=== PATIENT | female | born 1970 | race Caucasian/White ===

== ENCOUNTER 2017-04-09 12:56 | Emergency (ER) | payer OTHER, SELFPAY ==
[2017-04-09] MEDS ORDERED: Metoclopramide 10 MG/2 ML SDV IVPUSH ONE (13:20)
[2017-04-09] MEDS ORDERED: Lactated Ringers 1,000 ML IV ONE ×3 (13:20→15:27)
--- NOTE | 2017-04-09 13:36 | EDM.PDOC ---
ED HPI GENERAL MEDICAL PROBLEM - General Chief Complaint: Diabetic Complaint Stated Complaint: HIGH BLOOD SUGAR, VOMITING Time Seen by Provider: 04/09/17 13:20 Source of Information: Reports: Patient, Family History Limitations: Reports: No Limitations - History of Present Illness INITIAL COMMENTS - FREE TEXT/NARRATIVE: 46 yo female diabetic presents with high blood sugar and vomiting. Says she was hospitalized for DKA about 5 yrs ago. Checks her BS rarely. Has long acting insulin that she takes daily and short acting insulin that she rarely uses, but did take 3 units of this today for her BS in the upper 400's. No fever. No hematemesis. No dysuria. No diarrhea. Here with her . Onset of vomiting this morning. Feels like she might be dehydrated. 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.) - Related Data Allergies Allergy/AdvReac Type Severity Reaction Status Date / Time No Known Allergies Allergy Verified 04/09/17 13:05 Home Meds: Home Meds Insulin Aspart [NovoLOG] 3 units SQ TID 04/09/17 [History] Insulin Glargine,Hum.Rec.Anlog [Lantus Solostar] 20 unit SQ QAM 04/09/17 [ History] Sertraline HCl [Sertraline HCl] 1 tab PO DAILY 04/09/17 [History] Simvastatin [Zocor] 20 mg PO BEDTIME 04/09/17 [History] Past Medical History Cardiovascular History: Reports: High Cholesterol Psychiatric History: Reports: Anxiety Endocrine/Metabolic History: Reports: Diabetes, Type I Social & Family History - Family History Family Medical History: Noncontributory - Tobacco Use Smoking Status *Q: Current Every Day Smoker Years of Tobacco use: 30 Packs/Tins Daily: 1 Second Hand Smoke Exposure: Yes - Alcohol Use Days Per Week of Alcohol Use: 7 Number of Drinks Per Day: 4 Total Drinks Per Week: 28 - Recreational Drug Use Recreational Drug Use: No ED ROS GENERAL - Review of Systems Review Of Systems: See Below Constitutional: Reports: No Symptoms, Decreased Appetite HEENT: Reports: No Symptoms Respiratory: Reports: No Symptoms Cardiovascular: Reports: Lightheadedness Endocrine: Reports: No Symptoms GI/Abdominal: Reports: Nausea, Vomiting : Reports: No Symptoms Musculoskeletal: Reports: No Symptoms Skin: Reports: No Symptoms Neurological: Reports: No Symptoms Psychiatric: Reports: No Symptoms ED EXAM GENERAL NO PERIP PULSE - Physical Exam Exam: See Below Exam Limited By: No Limitations General Appearance: Alert, WD/WN, No Apparent Distress Eye Exam: Bilateral Eye: Conjunctival Injection, Normal Inspection Ears: Normal External Exam, Normal Canal, Hearing Grossly Normal Nose: Normal Inspection, Normal Mucosa, No Blood Throat/Mouth: Normal Inspection, Normal Lips, Normal Teeth, Normal Gums, Normal Oropharynx, Normal Voice, No Airway Compromise Head: Atraumatic, Normocephalic Neck: Normal Inspection, Supple, Non-Tender Respiratory/Chest: No Respiratory Distress, Lungs Clear, Normal Breath Sounds, No Accessory Muscle Use Cardiovascular: Regular Rate, Rhythm, No Edema, Tachycardia GI/Abdominal: Soft, Non-Tender, No Distention Back Exam: Normal Inspection Extremities: Normal Inspection, Normal Range of Motion, Non-Tender, No Pedal Edema Neurological: Alert, Oriented, CN II-XII Intact, Normal Cognition, Normal Gait, No Motor/Sensory Deficits Psychiatric: Normal Affect, Normal Mood Skin Exam: Warm, Dry, Intact, Normal Color, No Rash Lymphatic: No Adenopathy Course - Vital Signs Text/Narrative:: LR 1000 ml IV x 3, Reglan 10 mg IV, Novolog 20 units subcut., KCL 20 meq po x 2 , ate lunch. Last Recorded V/S: Last Vital Signs Temp 36.8 C 04/09/17 14:56 Pulse 106 H 04/09/17 14:56 Resp 20 04/09/17 14:56 BP 113/63 04/09/17 14:56 Pulse Ox 99 04/09/17 14:56 - Orders/Labs/Meds Labs: Laboratory Tests 04/09/17 04/09/17 04/09/17 Range/Units 13:30 13:30 13:30 ABG pH (7.35-7.45) ABG pCO2 (35-45) mmHg ABG pO2 (83-108) mmHg ABG HCO3 (22-26) mmol/L ABG O2 Saturation (96-97) % ABG Base Excess (-2-2) Ashish Test O2 Delivery Device Sodium 134 L (135-145) mmol/L Potassium 4.7 (3.5-5.3) mmol/L Chloride 98 L (100-110) mmol/L Carbon Dioxide 10 L* (23-29) mmol/L BUN 22 H (5-20) mg/dL Creatinine 1.1 (0.6-1.3) mg/dL Est Cr Clr Drug Dosing 44.93 mL/min Estimated GFR (MDRD) 53 L (>60) BUN/Creatinine Ratio 20.0 (9-20) Glucose 438 H* (80-116) mg/dL Calcium 9.3 (8.6-10.2) mg/dL Magnesium 2.0 (1.8-2.5) mg/dL Urine Color Yellow (YELLOW) Urine Appearance Slightly cloudy (CLEAR) Urine pH 5.0 (5.0-6.5) Ur Specific [place] 1.025 (1.010-1.025) Urine Protein Negative (NEGATIVE) mg/dL Urine Glucose (UA) >1000 H (NEGATIVE) mg/dL Urine Ketones 150 H (NEGATIVE) mg/dL Urine Occult Blood Large H (NEGATIVE) Urine Nitrite Negative (NEGATIVE) Urine Bilirubin Negative (NEGATIVE) Urine Urobilinogen Normal (NEGATIVE) mg/dL Ur Leukocyte Esterase Negative (NEGATIVE) Urine RBC >100 H (0) Urine WBC 0-5 (0) Ur Squamous Epith Cells Few H (NS,R,O) Urine Bacteria Rare H (NS) 04/09/17 04/09/17 Range/Units 13:40 16:15 ABG pH 7.15 L* (7.35-7.45) ABG pCO2 24 L (35-45) mmHg ABG pO2 121 H (83-108) mmHg ABG HCO3 8 L (22-26) mmol/L ABG O2 Saturation 98 H (96-97) % ABG Base Excess -20.4 L (-2-2) Ashish Test Passed O2 Delivery Device Room air Sodium 134 L (135-145) mmol/L Potassium 4.1 (3.5-5.3) mmol/L Chloride 103 D (100-110) mmol/L Carbon Dioxide 16 L (23-29) mmol/L BUN 18 (5-20) mg/dL Creatinine 0.6 (0.6-1.3) mg/dL Est Cr Clr Drug Dosing 82.36 mL/min Estimated GFR (MDRD) > 60 (>60) BUN/Creatinine Ratio 30.0 H (9-20) Glucose 127 H D (80-116) mg/dL Calcium 8.7 (8.6-10.2) mg/dL Magnesium (1.8-2.5) mg/dL Urine Color (YELLOW) Urine Appearance (CLEAR) Urine pH (5.0-6.5) Ur Specific [place] (1.010-1.025) Urine Protein (NEGATIVE) mg/dL Urine Glucose (UA) (NEGATIVE) mg/dL Urine Ketones (NEGATIVE) mg/dL Urine Occult Blood (NEGATIVE) Urine Nitrite (NEGATIVE) Urine Bilirubin (NEGATIVE) Urine Urobilinogen (NEGATIVE) mg/dL Ur Leukocyte Esterase (NEGATIVE) Urine RBC (0) Urine WBC (0) Ur Squamous Epith Cells (NS,R,O) Urine Bacteria (NS) Meds: Medications Discontinued Medications Generic Name Dose Route Start Last Admin Trade Name Freq PRN Reason Stop Dose Admin Lactated Ringer's 1,000 mls @ 1,000 mls/hr 04/09/17 13:20 04/09/17 13:40 Ringers, Lactated IV 04/09/17 14:19 1,000 mls/hr BOLUS ONE Administration Lactated Ringer's 1,000 mls @ 1,000 mls/hr 04/09/17 14:36 04/09/17 14:43 Ringers, Lactated IV 04/09/17 15:35 1,000 mls/hr BOLUS ONE Administration Lactated Ringer's 1,000 mls @ 1,000 mls/hr 04/09/17 15:27 04/09/17 15:40 Ringers, Lactated IV 04/09/17 16:26 1,000 mls/hr BOLUS ONE Administration Insulin Aspart 10 unit 04/09/17 13:39 04/09/17 14:41 Novolog SUBCUT 04/09/17 13:40 Not Given NOW STA Insulin Aspart 20 unit 04/09/17 13:48 04/09/17 13:52 Novolog SUBCUT 04/09/17 13:49 20 units NOW STA Administration Metoclopramide HCl 10 mg 04/09/17 13:20 04/09/17 13:46 Reglan IVPUSH 04/09/17 13:21 10 mg ONETIME ONE Administration Potassium Chloride 20 meq 04/09/17 13:49 04/09/17 13:56 Klor-Con 10 PO 04/09/17 13:50 20 meq ONETIME ONE Administration Potassium Chloride 20 meq 04/09/17 15:28 04/09/17 15:36 Klor-Con 10 PO 04/09/17 15:29 20 meq ONETIME ONE Administration Departure - Departure Time of Disposition: 17:00 Disposition: Home, Self-Care 01 Condition: fair Clinical Impression: Hyperglycemia, Dehydration DKA (diabetic ketoacidoses) Qualifiers: Diabetes mellitus type: other specified (including MALDONADO) Diabetes mellitus complication detail: without coma Qualified Code(s): E13.10 - Other specified diabetes mellitus with ketoacidosis without coma Nausea & vomiting Qualifiers: Vomiting type: unspecified Vomiting Intractability: non-intractable Qualified Code(s): R11.2 - Nausea with vomiting, unspecified - Discharge Information Referrals: Dunia Martin NP [Primary Care Provider] - Forms: ED Department Discharge
[2017-04-09] MEDS ORDERED: Insulin Aspart 100 Units/ML 3 ML Pen SUBCUT STA ×2 (13:39→13:48)
[2017-04-09] MEDS ORDERED: Potassium Chloride 10 MEQ Tab.ER PO ONE ×2 (13:49→15:28)
[2017-04-09 16:54] VITALS: BP 126/60
== END 2017-04-09 16:55 | disposition home or self-care (01) ==
LOC: FB.ED 12:56
DX: E10.10 Type 1 diabetes mellitus with ketoacidosis without coma (principal); E86.0 Dehydration; F17.210 Nicotine dependence, cigarettes, uncomplicated; E78.00 Pure hypercholesterolemia, unspecified; Z79.899 Other long term (current) drug therapy
CPT/HCPCS: 36415; 36600; 80048; 81001; 82803; 82962; 83735; 96361; 96372; 96374; 99284; A9270; J2765; J7120

== ENCOUNTER 2018-05-02 21:59 | Emergency (ER) | payer OTHER ==
[2018-05-02] MEDS: Ondansetron 4 MG/2 ML SDV IVPUSH ONE (22:49)
[2018-05-02] MEDS: Sodium Chloride 0.9% 1,000 ML IV SCH (22:49)
[2018-05-02] MEDS: Insulin Regular, Human 100 Units/ML 3 ML Vial IV ONE (22:51)
[2018-05-03] MEDS: Potassium Chloride 20 MEQ Tab.ER PO ONE (00:07)
--- NOTE | 2018-05-03 00:07 | EDM.PDOC ---
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, BS 300 in ED, given 10u regular insulin IV here repeat BS 30, h/o DKA in past, hyperglycemia with no DKA tonight pt says she "just got anxious" ethanol 250 here pt works at [employer] Reviewed, worried re who will open the store in the AM had N now, resolved with Zofran and IVF (1 liter NS), no V no pain, no sob, no CP - Related Data Allergies Allergy/AdvReac Type Severity Reaction Status Date / Time No Known Allergies Allergy Verified 05/02/18 22:32 Home Meds: Home Meds Insulin Aspart [NovoLOG] 3 units SQ TID 04/09/17 [History] Insulin Glargine,Hum.Rec.Anlog [Lantus Solostar] 20 unit SQ QAM 04/09/17 [ History] Sertraline HCl 1 tab PO DAILY 04/09/17 [History] Potassium Chloride 20 meq PO BID #6 tablet.er 05/03/18 [Rx] Past Medical History Cardiovascular History: Reports: High Cholesterol Psychiatric History: Reports: Anxiety Endocrine/Metabolic History: Reports: Diabetes, Type II Social & Family History - Family History Family Medical History: Noncontributory - Tobacco Use Smoking Status *Q: Current Every Day Smoker Years of Tobacco use: 30 Packs/Tins Daily: 1 - Caffeine Use Caffeine Use: Reports: Coffee, Soda - Recreational Drug Use Recreational Drug Use: No ED ROS GENERAL - Review of Systems Review Of Systems: See Below Constitutional: Reports: No Symptoms HEENT: Reports: No Symptoms Respiratory: Reports: No Symptoms Cardiovascular: Reports: No Symptoms Endocrine: Reports: No Symptoms GI/Abdominal: Reports: No Symptoms : Reports: No Symptoms Musculoskeletal: Reports: No Symptoms Skin: Reports: No Symptoms Neurological: Reports: No Symptoms Psychiatric: Reports: Other (alcohol intox) Hematologic/Lymphatic: Reports: No Symptoms Immunologic: Reports: No Symptoms ED EXAM, GENERAL - Physical Exam Exam: See Below Exam Limited By: No Limitations General Appearance: Alert, WD/WN, No Apparent Distress Eye Exam: Bilateral Eye: Normal Inspection Ears: Normal External Exam, Hearing Grossly Normal Nose: Normal Inspection, Normal Mucosa, No Blood Throat/Mouth: Normal Inspection, Normal Lips, Normal Oropharynx, Normal Voice, No Airway Compromise Head: Atraumatic, Normocephalic Neck: Normal Inspection, Supple, Non-Tender, Full Range of Motion Respiratory/Chest: No Respiratory Distress, Lungs Clear, Normal Breath Sounds, No Accessory Muscle Use, Chest Non-Tender Cardiovascular: Normal Peripheral Pulses, Regular Rate, Rhythm, No Edema, No Gallop, No JVD, No Murmur, No Rub GI/Abdominal: Normal Bowel Sounds, Soft, Non-Tender, No Distention Back Exam: Normal Inspection, Full Range of Motion, NT Extremities: Normal Inspection, Normal Range of Motion, Non-Tender, No Pedal Edema Neurological: Alert, Oriented, CN II-XII Intact, No Motor/Sensory Deficits Psychiatric: Anxious Skin Exam: Warm, Dry, Intact, Normal Color, No Rash Lymphatic: No Adenopathy Course - Vital Signs Last Recorded V/S: Last Vital Signs Temp 36.4 C 05/02/18 22:00 Pulse 73 05/02/18 22:00 Resp 17 05/02/18 22:00 BP 123/69 05/02/18 22:00 Pulse Ox 96 05/02/18 22:00 - Orders/Labs/Meds Orders: Active Orders 24 hr Category Date Time Status UA W/MICROSCOPIC [URIN] Stat Lab 05/02/18 22:04 Stop Req Sodium Chloride 0.9% [Normal Saline] 1,000 ml Med 05/02/18 22:15 Active IV ASDIRECTED Medication Orders Sodium Chloride (Normal Saline) 1,000 mls @ 150 mls/hr IV ASDIRECTED CK Last Admin: 05/02/18 22:49 Dose: 150 mls/hr Labs: Laboratory Tests 05/02/18 05/02/18 05/02/18 Range/Units 22:15 22:15 22:15 WBC 4.1 L (4.5-12.0) X10-3/uL RBC 3.76 (3.23-5.20) x10(6)uL Hgb 11.8 (11.5-15.5) g/dL Hct 35.4 (30.0-51.3) % MCV 94.1 (80-96) fL MCH 31.3 (27.7-33.6) pg MCHC 33.3 (32.2-35.4) g/dL RDW 12.0 (11.5-15.5) % Plt Count 168 (125-369) X10(3)uL MPV 10.3 (7.4-10.4) fL Neut % (Auto) 49.0 (46-82) % Lymph % (Auto) 37.6 H (13-37) % [place] % (Auto) 7.1 (4-12) % Eos % (Auto) 5 (1.0-5.0) % Baso % (Auto) 2 (0-2) % Neut # (Auto) 2.0 (1.6-8.3) # Lymph # (Auto) 1.5 (0.6-5.0) # [place] # (Auto) 0.3 (0.0-1.3) # Eos # (Auto) 0.2 (0.0-0.8) # Baso # (Auto) 0.1 (0.0-0.2) # POC VBG pH (7.31-7.41) POC VBG pCO2 (41-51) mmHG POC VBG HCO3 (23-28) mmol/L POC VBG Total CO2 (24-29) mmol/L POC VBG Base Excess (-2-3) mmol/L Sodium 135 (135-145) mmol/L Potassium 3.1 L (3.5-5.3) mmol/L Chloride 100 (100-110) mmol/L Carbon Dioxide 25 (21-32) mmol/L BUN 7 (7-18) mg/dL Creatinine 0.5 L (0.55-1.02) mg/dL Est Cr Clr Drug Dosing TNP Estimated GFR (MDRD) > 60 (>60) BUN/Creatinine Ratio 14.0 (9-20) Glucose 300 H (80-116) mg/dL Calcium 7.8 L (8.6-10.2) mg/dL Total Bilirubin 0.3 (0.1-1.3) mg/dL AST 17 (5-25) IU/L ALT 19 (12-36) U/L Alkaline Phosphatase 83 (56-112) IU/L Total Protein 6.2 (6.0-8.0) g/dL Albumin 3.1 L (3.5-5.2) g/dL Globulin 3.1 g/dL Albumin/Globulin Ratio 1.0 Ethyl Alcohol 0.25 H* (<0.03) % 05/02/18 Range/Units 22:15 WBC (4.5-12.0) X10-3/uL RBC (3.23-5.20) x10(6)uL Hgb (11.5-15.5) g/dL Hct (30.0-51.3) % MCV (80-96) fL MCH (27.7-33.6) pg MCHC (32.2-35.4) g/dL RDW (11.5-15.5) % Plt Count (125-369) X10(3)uL MPV (7.4-10.4) fL Neut % (Auto) (46-82) % Lymph % (Auto) (13-37) % [place] % (Auto) (4-12) % Eos % (Auto) (1.0-5.0) % Baso % (Auto) (0-2) % Neut # (Auto) (1.6-8.3) # Lymph # (Auto) (0.6-5.0) # [place] # (Auto) (0.0-1.3) # Eos # (Auto) (0.0-0.8) # Baso # (Auto) (0.0-0.2) # POC VBG pH 7.32 (7.31-7.41) POC VBG pCO2 48.5 (41-51) mmHG POC VBG HCO3 25.0 (23-28) mmol/L POC VBG Total CO2 26 (24-29) mmol/L POC VBG Base Excess -1 (-2-3) mmol/L Sodium (135-145) mmol/L Potassium (3.5-5.3) mmol/L Chloride (100-110) mmol/L Carbon Dioxide (21-32) mmol/L BUN (7-18) mg/dL Creatinine (0.55-1.02) mg/dL Est Cr Clr Drug Dosing Estimated GFR (MDRD) (>60) BUN/Creatinine Ratio (9-20) Glucose (80-116) mg/dL Calcium (8.6-10.2) mg/dL Total Bilirubin (0.1-1.3) mg/dL AST (5-25) IU/L ALT (12-36) U/L Alkaline Phosphatase (56-112) IU/L Total Protein (6.0-8.0) g/dL Albumin (3.5-5.2) g/dL Globulin g/dL Albumin/Globulin Ratio Ethyl Alcohol (<0.03) % Meds: Medications Generic Name Dose Route Start Last Admin Trade Name Freq PRN Reason Stop Dose Admin Sodium Chloride 1,000 mls @ 150 mls/hr 05/02/18 22:15 05/02/18 22:49 Normal Saline IV 150 mls/hr ASDIRECTED CK Administration Discontinued Medications Generic Name Dose Route Start Last Admin Trade Name Freq PRN Reason Stop Dose Admin Insulin Human Regular 10 unit 05/02/18 22:02 05/02/18 22:51 Humulin R IV 05/02/18 22:03 10 units ONETIME ONE Administration Ondansetron HCl 4 mg 05/02/18 22:02 05/02/18 22:49 Zofran IVPUSH 05/02/18 22:03 4 mg ONETIME ONE Administration Potassium Chloride 40 meq 05/02/18 23:13 Klor-Con M20 PO 05/02/18 23:14 ONETIME ONE Departure - Departure Time of Disposition: 00:07 Disposition: Home, Self-Care 01 Condition: Good Clinical Impression: Alcohol intoxication, Hypokalemia, Hyperglycemia - Discharge Information Prescriptions: Potassium Chloride 20 meq PO BID #6 tablet.er Instructions: Alcohol Intoxication, Alcohol Use Disorder Additional Instructions: To replace potassium, take potassium 20 meq 1 tab 2 times a day for 3 days. Continue current meds and insulin. Maintain fluids. Avoid alcohol. See your doctor in 2 days. - My Orders Last 24 Hours: My Active Orders 05/02/18 22:04 UA W/MICROSCOPIC [URIN] Stat 05/02/18 22:15 Sodium Chloride 0.9% [Normal Saline] 1,000 ml IV ASDIRECTED - Assessment/Plan Last 24 Hours: My Active Orders 05/02/18 22:04 UA W/MICROSCOPIC [URIN] Stat 05/02/18 22:15 Sodium Chloride 0.9% [Normal Saline] 1,000 ml IV ASDIRECTED
[2018-05-03 04:12] VITALS: BP 111/66
== END 2018-05-03 01:03 | disposition home or self-care (01) ==
LOC: FB.ED 21:59
DX: F10.129 Alcohol abuse with intoxication, unspecified (principal); E11.65 Type 2 diabetes mellitus with hyperglycemia; E87.6 Hypokalemia; F17.210 Nicotine dependence, cigarettes, uncomplicated; Z79.4 Long term (current) use of insulin; Y90.0 Blood alcohol level of less than 20 mg/100 ml
CPT/HCPCS: 36415; 80053; 82803; 82962; 85025; 96361; 96374; 96375; 99284; A9270; G0480; J1815; J2405; J7030

== ENCOUNTER 2019-07-10 06:40 | Day surgery (SDC) | payer OTHER ==
[2019-07-10] MEDS ORDERED: Propofol 200 MG/20 ML SDV IV ONE (06:41)
[2019-07-10] MEDS ORDERED: Midazolam 1 MG/ML 2 ML SDV IV ONE (06:41)
[2019-07-10] MEDS ORDERED: Sodium Chloride 0.9% 10 ML Syringe FLUSH PRN (06:45)
[2019-07-10] MEDS ORDERED: Lactated Ringers 1,000 ML IV SCH (06:45)
--- NOTE | 2019-07-10 08:26 | PCM.OPNOTE ---
- General Post-Op/Procedure Note Date of Surgery/Procedure: 07/10/19 Operative Procedure(s): c scope with bx Findings: ascending, descending and sigmoid colon Pre Op Diagnosis: screening. family hx of colon cancer Post-Op Diagnosis: colon polyps Anesthesia Technique: KELLI Primary Surgeon: Wallace Mcbride Anesthesia Provider: Jacki Taveras Pathology: ascending, descending and sigmoid colon Complications: None Condition: Good Free Text/Narrative:: see dictation
--- NOTE | 2019-07-10 09:06 | OR ---
DATE OF OPERATION: 07/10/2019 SURGEON: Wallace Mcbride MD PROCEDURE PERFORMED: Colonoscopy with cold forceps and hot loop snare biopsy. PREOPERATIVE DIAGNOSES: Need for screening C-scope, family history of colon cancer. POSTOPERATIVE DIAGNOSES: Ascending colon polyp, descending colon polyp, and sigmoid colon polyp. INDICATIONS FOR PROCEDURE: This is a 49-year-old white female, who presents for screening colonoscopy. She was offered and accepted same. DESCRIPTION OF OPERATION: After an excellent IV sedation was administered, digital rectal exam was performed. No marked abnormality was noted. Flexible colonoscope was inserted and advanced to the cecum. Prep was excellent. The following findings were noted. Ascending colon, a small polyp just above the cecum, biopsied with cold biopsy forceps and sent for permanent. Transverse colon was unremarkable. Descending colon, a small polyp, biopsied with cold biopsy forceps and sent for permanent. Sigmoid, at the proximal sigmoid, a pedunculated polyp was biopsied with the hot loop snare and sent for permanent. Rectum and anus were unremarkable. The patient tolerated the procedure well. Results by letter. /[id number] /MODL
[2019-07-10 09:07] VITALS: BP 112/62; PULSE 85
== END 2019-07-10 09:11 | disposition home or self-care (01) ==
LOC: FB.SDS 06:40
PROVIDERS: ATTEND Surgery
DX: Z12.11 Encounter for screening for malignant neoplasm of colon (principal); D12.2 Benign neoplasm of ascending colon; D12.4 Benign neoplasm of descending colon; D12.5 Benign neoplasm of sigmoid colon; E10.9 Type 1 diabetes mellitus without complications; E78.00 Pure hypercholesterolemia, unspecified; F17.210 Nicotine dependence, cigarettes, uncomplicated; F32.9 Major depressive disorder, single episode, unspecified; F41.1 Generalized anxiety disorder; Z91.09 Other allergy status, other than to drugs and biological substances; Z80.0 Family history of malignant neoplasm of digestive organs; Z79.899 Other long term (current) drug therapy
CPT/HCPCS: 45380; 45385; 81025; 82962; 88305; J2250; J2704; J7120

== ENCOUNTER 2020-11-23 13:22 | Observation (INO) | payer MEDICAID, OTHER ==
[2020-11-23] MEDS ORDERED: Ondansetron 4 MG/2 ML SDV IVPUSH ONE (13:47)
--- NOTE | 2020-11-23 13:55 | EDM.PDOC ---
ED HPI GENERAL MEDICAL PROBLEM - General Chief Complaint: Respiratory Problem Stated Complaint: SOB,MUSCLE PAIN Time Seen by Provider: 11/23/20 13:25 Source of Information: Reports: Patient History Limitations: Reports: No Limitations - History of Present Illness INITIAL COMMENTS - FREE TEXT/NARRATIVE: brought in from home . Notes she has tightness in her breath , abdominal and vomiting , no diarrhea Sates she had been drinking ;yesterday , last drink was at midnight Has not been able to eat as she had no appetite denies diarrhea , but had nausea and vomited On arrival here she did vomit No cough , no fever no chills states last time she had same she was in DKA and she was thought to be in withdrawal from alcohol Onset: Today Onset Date: 11/23/20 Duration: Getting Worse Location: Reports: Chest, Abdomen Quality: Reports: Ache, Pressure Severity: Moderate Improves with: Reports: None Worsens with: Reports: Eating (or drinking) Context: Reports: Other (pt has been drinking , has not been able to check her blood sugars) - Related Data Allergies Allergy/AdvReac Type Severity Reaction Status Date / Time MOLDS AdvReac Mild Other Uncoded 07/10/19 07:18 Home Meds: Home Meds Insulin Aspart [NovoLOG] 3 units SQ ASDIRECTED 04/09/17 [History] Sertraline HCl 200 mg PO DAILY 04/09/17 [History] Insulin Detemir [Levemir Flextouch] 28 - 32 unit SQ DAILY 07/09/19 [History] Past Medical History HEENT History: Reports: Impaired Vision Cardiovascular History: Reports: High Cholesterol Respiratory History: Reports: None Gastrointestinal History: Reports: None Genitourinary History: Reports: None [employer] History: Reports: , Spontaneous , Therapeutic 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[employer]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 Musculoskeletal History: Reports: None Neurological History: Reports: None Psychiatric History: Reports: Addiction, Anxiety, Depression Other Psychiatric History: SUBSTANCE ABUSE Endocrine/Metabolic History: Reports: Diabetes, Type I Hematologic History: Reports: None Immunologic History: Reports: None Oncologic (Cancer) History: Reports: None Dermatologic History: Reports: None - Past Surgical History Head Surgeries/Procedures: Reports: None HEENT Surgical History: Reports: Adenoidectomy, Oral Surgery, Tonsillectomy Cardiovascular Surgical History: Reports: None Respiratory Surgical History: Reports: None GI Surgical History: Reports: None Female Surgical History: Reports: None Endocrine Surgical History: Reports: None Neurological Surgical History: Reports: None Musculoskeletal Surgical History: Reports: None Oncologic Surgical History: Reports: None Dermatological Surgical History: Reports: None Social & Family History - Family History Family Medical History: No Pertinent Family History - Caffeine Use Caffeine Use: Reports: Coffee, Soda ED ROS GENERAL - Review of Systems Review Of Systems: See Below Constitutional: Reports: Weakness, Fatigue, Diaphoresis, Decreased Appetite. Denies: Fever, Chills, Malaise HEENT: Reports: No Symptoms Respiratory: Denies: Shortness of Breath, Cough, Sputum Cardiovascular: Reports: Dyspnea on Exertion. Denies: Chest Pain Endocrine: Reports: Fatigue, High Glucose, Polydypsia GI/Abdominal: Reports: No Symptoms : Reports: No Symptoms Musculoskeletal: Reports: No Symptoms Skin: Reports: No Symptoms Neurological: Reports: Confusion, Dizziness, Weakness Psychiatric: Reports: Anxiety Hematologic/Lymphatic: Reports: No Symptoms Immunologic: Reports: No Symptoms ED EXAM, GI/ABD - Physical Exam Exam: See Below Exam Limited By: Intoxication General Appearance: Alert, No Apparent Distress, Anxious, Other (talking a lot but coherently) Eyes: Bilateral: EOMI Ears: Normal External Exam Nose: Normal Inspection Throat/Mouth: Other (VERY DRY mucous memebranes) Head: Atraumatic. No: Facial Swelling Neck: Supple, Non-Tender Respiratory/Chest: No Respiratory Distress, Lungs Clear, Normal Breath Sounds Cardiovascular: Regular Rate, Rhythm, Tachycardia GI/Abdominal Exam: Soft, Non-Tender, Abnormal Bowel Sounds. No: Guarding, Tender Back Exam: Normal Inspection, Full Range of Motion Extremities: Normal Range of Motion, No Pedal Edema Neurological: Alert, Oriented, Normal Cognition. No: Memory Loss Recent Events, Sensory/Motor Deficit Psychiatric: Anxious Skin Exam: Warm, Dry, Intact Lymphatic: No Adenopathy Course - Vital Signs Last Recorded V/S: Last Vital Signs Temp 36.9 C 11/24/20 07:56 Pulse 107 H 11/24/20 07:56 Resp 18 11/24/20 07:56 BP 136/65 11/24/20 07:56 Pulse Ox 92 L 11/24/20 07:56 - Orders/Labs/Meds Orders: Active Orders 24 hr Category Date Time Status Patient Status [ADT] Routine ADT 11/23/20 21:36 Active Accu Check [Blood Glucose Check, Bedside] [RC] Care 11/23/20 21:40 Active QIDACANDBED Ambulate [RC] PER UNIT ROUTINE Care 11/23/20 21:35 Active Antiembolic Devices [RC] .Routine Care 11/23/20 21:37 Active Intake and Output [RC] 06,14,22 Care 11/23/20 21:38 Active Neurological Monitoring [RC] ASDIRECTED Care 11/23/20 21:41 Active Pulse Oximetry [RC] .PRN Care 11/23/20 21:36 Active Up With Assistance [RC] ASDIRECTED Care 11/23/20 21:35 Active VTE/DVT Education [RC] Click to Edit Care 11/23/20 21:37 Active Vital Signs [RC] Q4H Care 11/23/20 21:36 Active Food Request [Guest Tray] [DIET] Diet 11/24/20 Breakfast Ordered Heart Healthy Diet [DIET] Diet 11/24/20 Breakfast Active Calcium Carbonate [Tums] Med 11/23/20 21:35 Active 1,000 mg PO Q4H PRN Dextrose 50% in Water Med 11/23/20 16:14 Active 50 ml IVPUSH ASDIRECTED PRN Dextrose 50% in Water Med 11/23/20 16:48 Active 50 ml IVPUSH ASDIRECTED PRN Dextrose 50% in Water Med 11/23/20 20:10 Active 50 ml IVPUSH ASDIRECTED PRN Glucagon,Human Recombinant [GlucaGen] Med 11/23/20 16:14 Active 1 mg IM ASDIRECTED PRN Glucagon,Human Recombinant [GlucaGen] Med 11/23/20 16:48 Active 1 mg IM ASDIRECTED PRN Glucagon,Human Recombinant [GlucaGen] Med 11/23/20 20:10 Active 1 mg IM ASDIRECTED PRN Magnesium Hydroxide [Milk of Magnesia] Med 11/23/20 21:35 Active 30 ml PO BID PRN Sodium Chloride 0.9% [Normal Saline] 1,000 ml Med 11/23/20 18:45 Active IV .BOLUS DVT/VTE Prophylaxis Reflex [OM.PC] Per Unit Routine Oth 11/23/20 21:36 Ordered Resuscitation Status Routine Resus Stat 11/23/20 21:35 Ordered Medication Orders Acetaminophen (Tylenol) 650 mg PO Q4H PRN PRN Reason: Pain Last Admin: 11/24/20 07:55 Dose: 650 mg Documented by: [id number] Calcium Carbonate/Glycine (Tums) 1,000 mg PO Q4H PRN PRN Reason: Dyspepsia Dextrose/Water (Dextrose 50% In Water) 50 ml IVPUSH ASDIRECTED PRN PRN Reason: Hypoglycemia Dextrose/Water (Dextrose 50% In Water) 50 ml IVPUSH ASDIRECTED PRN PRN Reason: Hypoglycemia Dextrose/Water (Dextrose 50% In Water) 50 ml IVPUSH ASDIRECTED PRN PRN Reason: Hypoglycemia Glucagon (Glucagen) 1 mg IM ASDIRECTED PRN PRN Reason: Hypoglycemia Glucagon (Glucagen) 1 mg IM ASDIRECTED PRN PRN Reason: Hypoglycemia Glucagon (Glucagen) 1 mg IM ASDIRECTED PRN PRN Reason: Hypoglycemia Sodium Chloride (Normal Saline) 1,000 mls @ 999 mls/hr IV .BOLUS CK Ketorolac Tromethamine (Toradol) 30 mg IVPUSH Q6H PRN PRN Reason: Headache Stop: 11/29/20 08:42 Magnesium Hydroxide (Milk Of Magnesia) 30 ml PO BID PRN PRN Reason: Constipation Sertraline HCl (Zoloft) 200 mg PO DAILY [facility] [place] Labs: Laboratory Tests 11/23/20 11/23/20 11/23/20 Range/Units 13:40 13:48 14:00 WBC 8.5 (3.0-10.3) x10-3/uL RBC 4.06 (3.60-5.20) x10(6)uL Hgb 11.4 (11.4-15.5) g/dL Hct 39.3 (34.2-48.2) % MCV 96.8 (76.7-100.5) fL MCH 28.1 (23.9-33.9) pg MCHC 29.0 L (31.9-34.8) g/dL RDW 15.9 (12.3-16.5) % Plt Count 238 (151-488) x10(3)uL MPV 11.1 (7.1-12.4) fL Neut % (Auto) 83.4 H (30.8-76.2) % Lymph % (Auto) 11.2 L (18.4-52.1) % [place] % (Auto) 3.8 L (4.4-15.7) % Eos % (Auto) 0.2 L (0.6-8.1) % Baso % (Auto) 1.4 (0.2-1.5) % Neut # (Auto) 7.1 H (1.5-6.3) x10-3/uL Lymph # (Auto) 1.0 (1.0-4.4) x10-3/uL [place] # (Auto) 0.3 (0.3-1.0) x10-3/uL Eos # (Auto) 0.0 (0.0-0.8) x10-3/uL Baso # (Auto) 0.1 (0.0-0.1) x10-3/uL Sodium (135-145) mmol/L Potassium (3.5-5.3) mmol/L Chloride (100-110) mmol/L Carbon Dioxide (21-32) mmol/L BUN (7-18) mg/dL Creatinine (0.55-1.02) mg/dL Est Cr Clr Drug Dosing mL/min Estimated GFR (MDRD) (>60) BUN/Creatinine Ratio (9-20) Glucose (80-116) mg/dL POC Glucose > 500 H* (74-100) mg/dL Lactic Acid (0.4-2.0) mmol/L Calcium (8.6-10.2) mg/dL Total Bilirubin (0.1-1.3) mg/dL AST (5-25) IU/L ALT (12-36) U/L Alkaline Phosphatase (56-112) IU/L C-Reactive Protein (0.5-0.9) mg/dL Total Protein (6.0-8.0) g/dL Albumin (3.5-5.2) g/dL Globulin g/dL Albumin/Globulin Ratio Urine Color Red (YELLOW) Urine Appearance Cloudy (CLEAR) Urine pH 5.0 (5.0-6.5) Ur Specific [place] 1.030 H (1.010-1.025) Urine Protein 30 H (NEGATIVE) mg/dL Urine Glucose (UA) >1000 H (NORMAL) mg/dL Urine Ketones 150 H (NEGATIVE) mg/dL Urine Occult Blood Large H (NEGATIVE) Urine Nitrite Negative (NEGATIVE) Urine Bilirubin Negative (NEGATIVE) Urine Urobilinogen Normal (NEGATIVE) mg/dL Ur Leukocyte Esterase Small H (NEGATIVE) Urine RBC >100 H (0-5) Urine WBC 0-5 (0-5) Ur Squamous Epith Cells Occasional (NS,R,O) Urine Bacteria Few H (NS) Ethyl Alcohol (<0.03) % SARS-CoV-2 RNA (RENNY) (NEGATIVE) 11/23/20 11/23/20 11/23/20 Range/Units 14:00 14:00 14:00 WBC (3.0-10.3) x10-3/uL RBC (3.60-5.20) x10(6)uL Hgb (11.4-15.5) g/dL Hct (34.2-48.2) % MCV (76.7-100.5) fL MCH (23.9-33.9) pg MCHC (31.9-34.8) g/dL RDW (12.3-16.5) % Plt Count (151-488) x10(3)uL MPV (7.1-12.4) fL Neut % (Auto) (30.8-76.2) % Lymph % (Auto) (18.4-52.1) % [place] % (Auto) (4.4-15.7) % Eos % (Auto) (0.6-8.1) % Baso % (Auto) (0.2-1.5) % Neut # (Auto) (1.5-6.3) x10-3/uL Lymph # (Auto) (1.0-4.4) x10-3/uL [place] # (Auto) (0.3-1.0) x10-3/uL Eos # (Auto) (0.0-0.8) x10-3/uL Baso # (Auto) (0.0-0.1) x10-3/uL Sodium 128 L (135-145) mmol/L Potassium 6.2 H* D (3.5-5.3) mmol/L Chloride 87 L* D (100-110) mmol/L Carbon Dioxide 9 L* (21-32) mmol/L BUN 26 H D (7-18) mg/dL Creatinine 1.4 H (0.55-1.02) mg/dL Est Cr Clr Drug Dosing 33.76 mL/min Estimated GFR (MDRD) 39 L (>60) BUN/Creatinine Ratio 18.6 (9-20) Glucose 776 H* D (80-116) mg/dL POC Glucose (74-100) mg/dL Lactic Acid 3.0 H* (0.4-2.0) mmol/L Calcium 9.5 (8.6-10.2) mg/dL Total Bilirubin 0.7 (0.1-1.3) mg/dL AST 52 H D (5-25) IU/L ALT 35 D (12-36) U/L Alkaline Phosphatase 192 H (56-112) IU/L C-Reactive Protein 3.6 H* (0.5-0.9) mg/dL Total Protein 7.8 (6.0-8.0) g/dL Albumin 3.5 (3.5-5.2) g/dL Globulin 4.3 g/dL Albumin/Globulin Ratio 0.8 Urine Color (YELLOW) Urine Appearance (CLEAR) Urine pH (5.0-6.5) Ur Specific [place] (1.010-1.025) Urine Protein (NEGATIVE) mg/dL Urine Glucose (UA) (NORMAL) mg/dL Urine Ketones (NEGATIVE) mg/dL Urine Occult Blood (NEGATIVE) Urine Nitrite (NEGATIVE) Urine Bilirubin (NEGATIVE) Urine Urobilinogen (NEGATIVE) mg/dL Ur Leukocyte Esterase (NEGATIVE) Urine RBC (0-5) Urine WBC (0-5) Ur Squamous Epith Cells (NS,R,O) Urine Bacteria (NS) Ethyl Alcohol (<0.03) % SARS-CoV-2 RNA (RENNY) (NEGATIVE) 11/23/20 11/23/20 11/23/20 Range/Units 14:00 16:23 17:35 WBC (3.0-10.3) x10-3/uL RBC (3.60-5.20) x10(6)uL Hgb (11.4-15.5) g/dL Hct (34.2-48.2) % MCV (76.7-100.5) fL MCH (23.9-33.9) pg MCHC (31.9-34.8) g/dL RDW (12.3-16.5) % Plt Count (151-488) x10(3)uL MPV (7.1-12.4) fL Neut % (Auto) (30.8-76.2) % Lymph % (Auto) (18.4-52.1) % [place] % (Auto) (4.4-15.7) % Eos % (Auto) (0.6-8.1) % Baso % (Auto) (0.2-1.5) % Neut # (Auto) (1.5-6.3) x10-3/uL Lymph # (Auto) (1.0-4.4) x10-3/uL [place] # (Auto) (0.3-1.0) x10-3/uL Eos # (Auto) (0.0-0.8) x10-3/uL Baso # (Auto) (0.0-0.1) x10-3/uL Sodium 131 L (135-145) mmol/L Potassium 5.0 D (3.5-5.3) mmol/L Chloride 93 L D (100-110) mmol/L Carbon Dioxide 6 L* (21-32) mmol/L BUN 27 H (7-18) mg/dL Creatinine 1.3 H (0.55-1.02) mg/dL Est Cr Clr Drug Dosing 36.36 mL/min Estimated GFR (MDRD) 43 L (>60) BUN/Creatinine Ratio 20.8 H (9-20) Glucose 697 H* (80-116) mg/dL POC Glucose (74-100) mg/dL Lactic Acid 2.6 H* (0.4-2.0) mmol/L Calcium 8.4 L (8.6-10.2) mg/dL Total Bilirubin (0.1-1.3) mg/dL AST (5-25) IU/L ALT (12-36) U/L Alkaline Phosphatase (56-112) IU/L C-Reactive Protein (0.5-0.9) mg/dL Total Protein (6.0-8.0) g/dL Albumin (3.5-5.2) g/dL Globulin g/dL Albumin/Globulin Ratio Urine Color (YELLOW) Urine Appearance (CLEAR) Urine pH (5.0-6.5) Ur Specific [place] (1.010-1.025) Urine Protein (NEGATIVE) mg/dL Urine Glucose (UA) (NORMAL) mg/dL Urine Ketones (NEGATIVE) mg/dL Urine Occult Blood (NEGATIVE) Urine Nitrite (NEGATIVE) Urine Bilirubin (NEGATIVE) Urine Urobilinogen (NEGATIVE) mg/dL Ur Leukocyte Esterase (NEGATIVE) Urine RBC (0-5) Urine WBC (0-5) Ur Squamous Epith Cells (NS,R,O) Urine Bacteria (NS) Ethyl Alcohol < 0.03 (<0.03) % SARS-CoV-2 RNA (RENNY) (NEGATIVE) 11/23/20 11/23/20 11/23/20 Range/Units 19:45 20:01 20:49 WBC (3.0-10.3) x10-3/uL RBC (3.60-5.20) x10(6)uL Hgb (11.4-15.5) g/dL Hct (34.2-48.2) % MCV (76.7-100.5) fL MCH (23.9-33.9) pg MCHC (31.9-34.8) g/dL RDW (12.3-16.5) % Plt Count (151-488) x10(3)uL MPV (7.1-12.4) fL Neut % (Auto) (30.8-76.2) % Lymph % (Auto) (18.4-52.1) % [place] % (Auto) (4.4-15.7) % Eos % (Auto) (0.6-8.1) % Baso % (Auto) (0.2-1.5) % Neut # (Auto) (1.5-6.3) x10-3/uL Lymph # (Auto) (1.0-4.4) x10-3/uL [place] # (Auto) (0.3-1.0) x10-3/uL Eos # (Auto) (0.0-0.8) x10-3/uL Baso # (Auto) (0.0-0.1) x10-3/uL Sodium 137 (135-145) mmol/L Potassium 4.6 (3.5-5.3) mmol/L Chloride 99 L D (100-110) mmol/L Carbon Dioxide 10 L* (21-32) mmol/L BUN 26 H (7-18) mg/dL Creatinine 1.3 H (0.55-1.02) mg/dL Est Cr Clr Drug Dosing 36.36 mL/min Estimated GFR (MDRD) 43 L (>60) BUN/Creatinine Ratio 20.0 (9-20) Glucose 131 H D (80-116) mg/dL POC Glucose 122 H (74-100) mg/dL Lactic Acid (0.4-2.0) mmol/L Calcium 7.9 L (8.6-10.2) mg/dL Total Bilirubin (0.1-1.3) mg/dL AST (5-25) IU/L ALT (12-36) U/L Alkaline Phosphatase (56-112) IU/L C-Reactive Protein (0.5-0.9) mg/dL Total Protein (6.0-8.0) g/dL Albumin (3.5-5.2) g/dL Globulin g/dL Albumin/Globulin Ratio Urine Color (YELLOW) Urine Appearance (CLEAR) Urine pH (5.0-6.5) Ur Specific [place] (1.010-1.025) Urine Protein (NEGATIVE) mg/dL Urine Glucose (UA) (NORMAL) mg/dL Urine Ketones (NEGATIVE) mg/dL Urine Occult Blood (NEGATIVE) Urine Nitrite (NEGATIVE) Urine Bilirubin (NEGATIVE) Urine Urobilinogen (NEGATIVE) mg/dL Ur Leukocyte Esterase (NEGATIVE) Urine RBC (0-5) Urine WBC (0-5) Ur Squamous Epith Cells (NS,R,O) Urine Bacteria (NS) Ethyl Alcohol (<0.03) % SARS-CoV-2 RNA (RENNY) Negative (NEGATIVE) 11/23/20 11/23/20 Range/Units 21:00 22:27 WBC (3.0-10.3) x10-3/uL RBC (3.60-5.20) x10(6)uL Hgb (11.4-15.5) g/dL Hct (34.2-48.2) % MCV (76.7-100.5) fL MCH (23.9-33.9) pg MCHC (31.9-34.8) g/dL RDW (12.3-16.5) % Plt Count (151-488) x10(3)uL MPV (7.1-12.4) fL Neut % (Auto) (30.8-76.2) % Lymph % (Auto) (18.4-52.1) % [place] % (Auto) (4.4-15.7) % Eos % (Auto) (0.6-8.1) % Baso % (Auto) (0.2-1.5) % Neut # (Auto) (1.5-6.3) x10-3/uL Lymph # (Auto) (1.0-4.4) x10-3/uL [place] # (Auto) (0.3-1.0) x10-3/uL Eos # (Auto) (0.0-0.8) x10-3/uL Baso # (Auto) (0.0-0.1) x10-3/uL Sodium (135-145) mmol/L Potassium (3.5-5.3) mmol/L Chloride (100-110) mmol/L Carbon Dioxide (21-32) mmol/L BUN (7-18) mg/dL Creatinine (0.55-1.02) mg/dL Est Cr Clr Drug Dosing mL/min Estimated GFR (MDRD) (>60) BUN/Creatinine Ratio (9-20) Glucose (80-116) mg/dL POC Glucose 111 H 112 H (74-100) mg/dL Lactic Acid (0.4-2.0) mmol/L Calcium (8.6-10.2) mg/dL Total Bilirubin (0.1-1.3) mg/dL AST (5-25) IU/L ALT (12-36) U/L Alkaline Phosphatase (56-112) IU/L C-Reactive Protein (0.5-0.9) mg/dL Total Protein (6.0-8.0) g/dL Albumin (3.5-5.2) g/dL Globulin g/dL Albumin/Globulin Ratio Urine Color (YELLOW) Urine Appearance (CLEAR) Urine pH (5.0-6.5) Ur Specific [place] (1.010-1.025) Urine Protein (NEGATIVE) mg/dL Urine Glucose (UA) (NORMAL) mg/dL Urine Ketones (NEGATIVE) mg/dL Urine Occult Blood (NEGATIVE) Urine Nitrite (NEGATIVE) Urine Bilirubin (NEGATIVE) Urine Urobilinogen (NEGATIVE) mg/dL Ur Leukocyte Esterase (NEGATIVE) Urine RBC (0-5) Urine WBC (0-5) Ur Squamous Epith Cells (NS,R,O) Urine Bacteria (NS) Ethyl Alcohol (<0.03) % SARS-CoV-2 RNA (RENNY) (NEGATIVE) Meds: Medications Generic Name Dose Route Start Last Admin Trade Name Jesse PRN Reason Stop Dose Admin Acetaminophen 650 mg 11/24/20 07:45 11/24/20 07:55 Tylenol PO 650 mg Q4H PRN Administration Pain Calcium Carbonate/Glycine 1,000 mg 11/23/20 21:35 Tums PO Q4H PRN Dyspepsia Dextrose/Water 50 ml 11/23/20 16:14 Dextrose 50% In Water IVPUSH ASDIRECTED PRN Hypoglycemia Dextrose/Water 50 ml 11/23/20 16:48 Dextrose 50% In Water IVPUSH ASDIRECTED PRN Hypoglycemia Dextrose/Water 50 ml 11/23/20 20:10 Dextrose 50% In Water IVPUSH ASDIRECTED PRN Hypoglycemia Glucagon 1 mg 11/23/20 16:14 Glucagen IM ASDIRECTED PRN Hypoglycemia Glucagon 1 mg 11/23/20 16:48 Glucagen IM ASDIRECTED PRN Hypoglycemia Glucagon 1 mg 11/23/20 20:10 Glucagen IM ASDIRECTED PRN Hypoglycemia Sodium Chloride 1,000 mls @ 999 mls/hr 11/23/20 18:45 Normal Saline IV .BOLUS CK Ketorolac Tromethamine 30 mg 11/24/20 08:42 Toradol IVPUSH 11/29/20 08:42 Q6H PRN Headache Magnesium Hydroxide 30 ml 11/23/20 21:35 Milk Of Magnesia PO BID PRN Constipation Sertraline HCl 200 mg 11/24/20 09:00 Zoloft PO DAILY CK Discontinued Medications Generic Name Dose Route Start Last Admin Trade Name Jesse PRN Reason Stop Dose Admin Acetaminophen 1,000 mg 11/23/20 22:31 11/23/20 22:37 Tylenol Extra Strength PO 11/23/20 22:32 1,000 mg ONETIME ONE Administration Ceftriaxone Sodium 1 gm 11/23/20 19:37 11/23/20 19:40 Rocephin IVPUSH 11/23/20 19:38 1 gm ONETIME ONE Administration Sodium Chloride 1,000 mls @ 999 mls/hr 11/23/20 14:00 11/23/20 15:10 Normal Saline IV 999 mls/hr ASDIRECTED CK Administration Sodium Chloride 1,000 mls @ 250 mls/hr 11/23/20 16:15 11/23/20 16:10 Normal Saline IV 250 mls/hr ASDIRECTED CK Administration Ceftriaxone Sodium 1 gm/ 50 mls @ 200 mls/hr 11/23/20 18:29 Sodium Chloride IV 11/23/20 18:43 ONETIME ONE Sodium Chloride 1,000 mls @ 125 mls/hr 11/23/20 20:15 11/23/20 20:17 Normal Saline IV 125 mls/hr ASDIRECTED CK Administration Sodium Chloride 1,000 mls @ 125 mls/hr 11/23/20 21:45 11/24/20 04:27 Normal Saline IV 125 mls/hr ASDIRECTED CK Administration Insulin Glargine 15 units 11/23/20 20:10 11/23/20 20:21 Lantus Solostar SUBCUT 11/23/20 20:11 15 units NOW STA Administration Insulin Human Regular 10 unit 11/23/20 16:14 11/23/20 16:34 Humulin R SUBCUT 11/23/20 16:15 10 units ONETIME ONE Administration Insulin Human Regular 10 unit 11/23/20 16:48 11/23/20 16:56 Humulin R IV 11/23/20 16:49 10 units ONETIME ONE Administration Lorazepam 0.5 mg 11/23/20 20:13 11/23/20 20:23 Ativan PO 11/23/20 20:14 0.5 mg ONETIME ONE Administration Ondansetron HCl 4 mg 11/23/20 13:47 11/23/20 14:13 Zofran IVPUSH 11/23/20 13:48 4 mg ONETIME ONE Administration Pantoprazole Sodium 40 mg 11/23/20 21:13 11/23/20 21:24 Protonix Iv IVPUSH 11/23/20 21:14 40 mg ONETIME ONE Administration - Re-Assessments/Exams Free Text/Narrative Re-Assessment/Exam: 11/23/20 18:30 pt given 2 liters of fluid , Zofran Still feeling very thirsty Given Sc Insulin and then IV insulin Electrolytes improved 11/23/20 20:14 pt BS is 122 Given toast , peanut butter and jelly with milk IVF decreased to 125mls/hr pt given Lantus 15units SC ( usually take Levemir 28-32units at night) states she is doing better but complaining of being sob ( )2 sat 99%) Departure - Departure Time of Disposition: 22:45 Disposition: Admitted As Inpatient 64 Clinical Impression: Alcohol intoxication in active alcoholic without complication, Dehydration, Hyperglycemia DKA (diabetic ketoacidoses) Qualifiers: Diabetes mellitus type: type 1 Diabetes mellitus complication detail: without coma Qualified Code(s): E10.10 - Type 1 diabetes mellitus with ketoacidosis without coma Nausea & vomiting Qualifiers: Vomiting type: unspecified Vomiting Intractability: non-intractable Qualified Code(s): R11.2 - Nausea with vomiting, unspecified - Discharge Information *PRESCRIPTION DRUG MONITORING PROGRAM REVIEWED*: Not Applicable *COPY OF PRESCRIPTION DRUG MONITORING REPORT IN PATIENT MARIAN: Not Applicable Sepsis Event Note (ED) - Focused Exam Vital Signs: Vital Signs Temp Pulse Resp BP Pulse Ox 11/23/20 22:30 36.7 C 117 H 18 114/57 L 98 - My Orders Last 24 Hours: My Active Orders 11/23/20 16:14 Dextrose 50% in Water 50 ml IVPUSH ASDIRECTED PRN Glucagon,Human Recombinant [GlucaGen] 1 mg IM ASDIRECTED PRN 11/23/20 16:48 Dextrose 50% in Water 50 ml IVPUSH ASDIRECTED PRN Glucagon,Human Recombinant [GlucaGen] 1 mg IM ASDIRECTED PRN 11/23/20 18:45 Sodium Chloride 0.9% [Normal Saline] 1,000 ml IV .BOLUS 11/23/20 20:10 Dextrose 50% in Water 50 ml IVPUSH ASDIRECTED PRN Glucagon,Human Recombinant [GlucaGen] 1 mg IM ASDIRECTED PRN 11/23/20 21:35 Ambulate [RC] PER UNIT ROUTINE Up With Assistance [RC] ASDIRECTED Calcium Carbonate [Tums] 1,000 mg PO Q4H PRN Magnesium Hydroxide [Milk of Magnesia] 30 ml PO BID PRN Resuscitation Status Routine 11/23/20 21:36 Patient Status [ADT] Routine Pulse Oximetry [RC] .PRN Vital Signs [RC] Q4H DVT/VTE Prophylaxis Reflex [OM.PC] Per Unit Routine 11/23/20 21:37 Antiembolic Devices [RC] .Routine VTE/DVT Education [RC] Click to Edit 11/23/20 21:38 Intake and Output [RC] 06,,11/23/20 21:40 Accu Check [Blood Glucose Check, Bedside] [RC] QIDACANDBED 11/23/20 21:41 Neurological Monitoring [RC] ASDIRECTED 11/24/20 Breakfast Food Request [Guest Tray] [DIET] Heart Healthy Diet [DIET] - Assessment/Plan Last 24 Hours: My Active Orders 11/23/20 16:14 Dextrose 50% in Water 50 ml IVPUSH ASDIRECTED PRN Glucagon,Human Recombinant [GlucaGen] 1 mg IM ASDIRECTED PRN 11/23/20 16:48 Dextrose 50% in Water 50 ml IVPUSH ASDIRECTED PRN Glucagon,Human Recombinant [GlucaGen] 1 mg IM ASDIRECTED PRN 11/23/20 18:45 Sodium Chloride 0.9% [Normal Saline] 1,000 ml IV .BOLUS 11/23/20 20:10 Dextrose 50% in Water 50 ml IVPUSH ASDIRECTED PRN Glucagon,Human Recombinant [GlucaGen] 1 mg IM ASDIRECTED PRN 11/23/20 21:35 Ambulate [RC] PER UNIT ROUTINE Up With Assistance [RC] ASDIRECTED Calcium Carbonate [Tums] 1,000 mg PO Q4H PRN Magnesium Hydroxide [Milk of Magnesia] 30 ml PO BID PRN Resuscitation Status Routine 11/23/20 21:36 Patient Status [ADT] Routine Pulse Oximetry [RC] .PRN Vital Signs [RC] Q4H DVT/VTE Prophylaxis Reflex [OM.PC] Per Unit Routine 11/23/20 21:37 Antiembolic Devices [RC] .Routine VTE/DVT Education [RC] Click to Edit 11/23/20 21:38 Intake and Output [RC] ,,11/23/20 21:40 Accu Check [Blood Glucose Check, Bedside] [RC] QIDACANDBED 11/23/20 21:41 Neurological Monitoring [RC] ASDIRECTED 11/24/20 Breakfast Food Request [Guest Tray] [DIET] Heart Healthy Diet [DIET]
[2020-11-23] MEDS: Sodium Chloride 0.9% 1,000 ML IV SCH ×2 (14:00→15:10)
[2020-11-23] MEDS ORDERED: Glucagon,Human Recombinant 1 MG Vial IM PRN ×3 (16:14→20:10)
[2020-11-23] MEDS ORDERED: 50% Dextrose in Water 50 ML Syringe IVPUSH PRN ×3 (16:14→20:10)
[2020-11-23] MEDS ORDERED: Insulin Regular, Human 100 Units/ML 3 ML Vial SUBCUT ONE (16:14)
[2020-11-23] MEDS ORDERED: Sodium Chloride 0.9% 1,000 ML IV SCH ×4 (16:15→21:45)
[2020-11-23] MEDS ORDERED: Insulin Regular, Human 100 Units/ML 3 ML Vial IV ONE (16:48)
[2020-11-23] MEDS ORDERED: cefTRIAXone 1 GM in Sodium Chloride 0.9% 50 ML IV ONE (18:29)
[2020-11-23] MEDS ORDERED: cefTRIAXone 1 GM Vial IVPUSH ONE (19:37)
[2020-11-23] MEDS ORDERED: Insulin Glargine,Human Rec. Analog 100 Units/ML 3 ML Pen SUBCUT STA (20:10)
[2020-11-23] MEDS ORDERED: LORazepam 0.5 MG Tab PO ONE (20:13)
[2020-11-23] MEDS ORDERED: Insulin Glargine,Human Rec. Analog 100 Units/ML 3 ML Pen SUBCUT ONE (20:20)
[2020-11-23] MEDS ORDERED: Pantoprazole 40 MG Vial IVPUSH ONE (21:13)
[2020-11-23] MEDS ORDERED: Magnesium Hydroxide 400 MG/5 ML Susp 30 ML Cup PO PRN (21:35)
[2020-11-23] MEDS ORDERED: Calcium Carbonate 500 MG Tab.Chew PO PRN (21:35)
[2020-11-23] MEDS ORDERED: Acetaminophen 500 MG Tab PO ONE (22:31)
[2020-11-24] MEDS ORDERED: Acetaminophen Soln 650 MG/20.3 ML UD Cup PO PRN (07:43)
[2020-11-24] MEDS ORDERED: Acetaminophen 325 MG Tab PO PRN (07:45)
[2020-11-24 07:57] VITALS: BP 136/65; PULSE 107
--- NOTE | 2020-11-24 08:41 | PCM.HP.2 ---
H&P History of Present Illness - General Date of Service: 11/24/20 Admit Problem/Dx: Admission Diagnosis/Problem Admission Diagnosis/Problem Diabetic ketoacidosis Source of Information: Patient, Old Records History Limitations: Reports: No Limitations - History of Present Illness Initial Comments - Free Text/Narative: Leann is a 50-year-old female Type 1 Diabetic who came in DKA. She presented to the ER last night with weakness, muscle aches, vomiting and difficulty breathing (Kussmaul breathing). These symptoms were insidious in onset and progressively getting worse. Upon presentation her sugars was more than 750. She reports that she had lost her glucometer, and had not been eating well neither drinking much. Additionally she's been on up. And feeling drained and weak. She did not endorse any chest pain fever or chills. This morning she complains of a headache that is frontal moderate, along with sore throat which she believes from vomiting. Her sugars have improved. - Related Data Allergies/Adverse Reactions: Allergies Allergy/AdvReac Type Severity Reaction Status Date / Time MOLDS AdvReac Mild Other Uncoded 07/10/19 07:18 Home Medications: Home Meds Insulin Aspart [NovoLOG] 3 units SQ ASDIRECTED 04/09/17 [History] Sertraline HCl 200 mg PO DAILY 04/09/17 [History] Insulin Detemir [Levemir Flextouch] 28 - 32 unit SQ DAILY 07/09/19 [History] Past Medical History HEENT History: Reports: Impaired Vision Cardiovascular History: Reports: High Cholesterol Respiratory History: Reports: None Gastrointestinal History: Reports: None Genitourinary History: Reports: None JIG FILLER History: Reports: , Spontaneous , Therapeutic Other OB/BYN History: EXCESSIVE OR FREQUENT MENSTRUATION Musculoskeletal History: Reports: None Neurological History: Reports: None Psychiatric History: Reports: Addiction, Anxiety, Depression Other Psychiatric History: SUBSTANCE ABUSE Endocrine/Metabolic History: Reports: Diabetes, Type I Hematologic History: Reports: None Immunologic History: Reports: None Oncologic (Cancer) History: Reports: None Dermatologic History: Reports: None - Infectious Disease History Infectious Disease History: Reports: Chicken Pox - Past Surgical History Head Surgeries/Procedures: Reports: None HEENT Surgical History: Reports: Adenoidectomy, Oral Surgery, Tonsillectomy Cardiovascular Surgical History: Reports: None Respiratory Surgical History: Reports: None GI Surgical History: Reports: None Female Surgical History: Reports: None Endocrine Surgical History: Reports: None Neurological Surgical History: Reports: None Musculoskeletal Surgical History: Reports: None Oncologic Surgical History: Reports: None Dermatological Surgical History: Reports: None Social & Family History - Family History Family Medical History: No Pertinent Family History - Tobacco Use Tobacco Use Status *Q: Current Every Day Tobacco User Years of Tobacco use: 30 Packs/Tins Daily: 1 Used Tobacco, but Quit: No Second Hand Smoke Exposure: Yes - Caffeine Use Caffeine Use: Reports: Coffee - Alcohol Use Days Per Week of Alcohol Use: 5 Number of Drinks Per Day: 6 Total Drinks Per Week: 30 - Recreational Drug Use Recreational Drug Use: No H&P Review of Systems - Review of Systems: Review Of Systems: Comprehensive ROS is negative, except as noted in HPI. Exam - Exam Exam: See Below - Vital Signs Vital Signs: Last Vital Signs Temp 98.4 F 11/24/20 07:56 Pulse 107 H 11/24/20 07:56 Resp 18 11/24/20 07:56 BP 136/65 11/24/20 07:56 Pulse Ox 92 L 11/24/20 07:56 Weight: 64.818 kg - Exam General: Alert HEENT: PERRLA, Conjunctiva Clear, EOMI Neck: Supple. No: Lymphadenopathy Lungs: Clear to Auscultation, Normal Respiratory Effort Cardiovascular: Regular Rate, Regular Rhythm Back Exam: Normal Inspection Extremities: Normal Inspection, No Pedal Edema. No: Pedal Edema Skin: Warm, Dry Neurological: Cranial Nerves Intact, Reflexes Equal Bilateral Neuro Extensive - Mental Status: Alert, Oriented x3, Memory Intact Psychiatric: Alert, Normal Affect - Patient Data Lab Results Last 24 hrs: Laboratory Results - last 24 hr 11/23/20 11/23/20 11/23/20 Range/Units 13:40 13:48 14:00 WBC 8.5 (3.0-10.3) x10-3/uL RBC 4.06 (3.60-5.20) x10(6)uL Hgb 11.4 (11.4-15.5) g/dL Hct 39.3 (34.2-48.2) % MCV 96.8 (76.7-100.5) fL MCH 28.1 (23.9-33.9) pg MCHC 29.0 L (31.9-34.8) g/dL RDW 15.9 (12.3-16.5) % Plt Count 238 (151-488) x10(3)uL MPV 11.1 (7.1-12.4) fL Neut % (Auto) 83.4 H (30.8-76.2) % Lymph % (Auto) 11.2 L (18.4-52.1) % [place] % (Auto) 3.8 L (4.4-15.7) % Eos % (Auto) 0.2 L (0.6-8.1) % Baso % (Auto) 1.4 (0.2-1.5) % Neut # (Auto) 7.1 H (1.5-6.3) x10-3/uL Lymph # (Auto) 1.0 (1.0-4.4) x10-3/uL [place] # (Auto) 0.3 (0.3-1.0) x10-3/uL Eos # (Auto) 0.0 (0.0-0.8) x10-3/uL Baso # (Auto) 0.1 (0.0-0.1) x10-3/uL PT (9.0-11.1) sec INR (1.00-1.24) Sodium (135-145) mmol/L Potassium (3.5-5.3) mmol/L Chloride (100-110) mmol/L Carbon Dioxide (21-32) mmol/L BUN (7-18) mg/dL Creatinine (0.55-1.02) mg/dL Est Cr Clr Drug Dosing mL/min Estimated GFR (MDRD) (>60) BUN/Creatinine Ratio (9-20) Glucose (80-116) mg/dL POC Glucose > 500 H* (74-100) mg/dL Lactic Acid (0.4-2.0) mmol/L Calcium (8.6-10.2) mg/dL Total Bilirubin (0.1-1.3) mg/dL AST (5-25) IU/L ALT (12-36) U/L Alkaline Phosphatase (56-112) IU/L C-Reactive Protein (0.5-0.9) mg/dL Total Protein (6.0-8.0) g/dL Albumin (3.5-5.2) g/dL Globulin g/dL Albumin/Globulin Ratio Urine Color Red (YELLOW) Urine Appearance Cloudy (CLEAR) Urine pH 5.0 (5.0-6.5) Ur Specific [place] 1.030 H (1.010-1.025) Urine Protein 30 H (NEGATIVE) mg/dL Urine Glucose (UA) >1000 H (NORMAL) mg/dL Urine Ketones 150 H (NEGATIVE) mg/dL Urine Occult Blood Large H (NEGATIVE) Urine Nitrite Negative (NEGATIVE) Urine Bilirubin Negative (NEGATIVE) Urine Urobilinogen Normal (NEGATIVE) mg/dL Ur Leukocyte Esterase Small H (NEGATIVE) Urine RBC >100 H (0-5) Urine WBC 0-5 (0-5) Ur Squamous Epith Cells Occasional (NS,R,O) Urine Bacteria Few H (NS) Ethyl Alcohol (<0.03) % SARS-CoV-2 RNA (RENNY) (NEGATIVE) 11/23/20 11/23/20 11/23/20 Range/Units 14:00 14:00 14:00 WBC (3.0-10.3) x10-3/uL RBC (3.60-5.20) x10(6)uL Hgb (11.4-15.5) g/dL Hct (34.2-48.2) % MCV (76.7-100.5) fL MCH (23.9-33.9) pg MCHC (31.9-34.8) g/dL RDW (12.3-16.5) % Plt Count (151-488) x10(3)uL MPV (7.1-12.4) fL Neut % (Auto) (30.8-76.2) % Lymph % (Auto) (18.4-52.1) % [place] % (Auto) (4.4-15.7) % Eos % (Auto) (0.6-8.1) % Baso % (Auto) (0.2-1.5) % Neut # (Auto) (1.5-6.3) x10-3/uL Lymph # (Auto) (1.0-4.4) x10-3/uL [place] # (Auto) (0.3-1.0) x10-3/uL Eos # (Auto) (0.0-0.8) x10-3/uL Baso # (Auto) (0.0-0.1) x10-3/uL PT (9.0-11.1) sec INR (1.00-1.24) Sodium 128 L (135-145) mmol/L Potassium 6.2 H* D (3.5-5.3) mmol/L Chloride 87 L* D (100-110) mmol/L Carbon Dioxide 9 L* (21-32) mmol/L BUN 26 H D (7-18) mg/dL Creatinine 1.4 H (0.55-1.02) mg/dL Est Cr Clr Drug Dosing 33.76 mL/min Estimated GFR (MDRD) 39 L (>60) BUN/Creatinine Ratio 18.6 (9-20) Glucose 776 H* D (80-116) mg/dL POC Glucose (74-100) mg/dL Lactic Acid 3.0 H* (0.4-2.0) mmol/L Calcium 9.5 (8.6-10.2) mg/dL Total Bilirubin 0.7 (0.1-1.3) mg/dL AST 52 H D (5-25) IU/L ALT 35 D (12-36) U/L Alkaline Phosphatase 192 H (56-112) IU/L C-Reactive Protein 3.6 H* (0.5-0.9) mg/dL Total Protein 7.8 (6.0-8.0) g/dL Albumin 3.5 (3.5-5.2) g/dL Globulin 4.3 g/dL Albumin/Globulin Ratio 0.8 Urine Color (YELLOW) Urine Appearance (CLEAR) Urine pH (5.0-6.5) Ur Specific [place] (1.010-1.025) Urine Protein (NEGATIVE) mg/dL Urine Glucose (UA) (NORMAL) mg/dL Urine Ketones (NEGATIVE) mg/dL Urine Occult Blood (NEGATIVE) Urine Nitrite (NEGATIVE) Urine Bilirubin (NEGATIVE) Urine Urobilinogen (NEGATIVE) mg/dL Ur Leukocyte Esterase (NEGATIVE) Urine RBC (0-5) Urine WBC (0-5) Ur Squamous Epith Cells (NS,R,O) Urine Bacteria (NS) Ethyl Alcohol (<0.03) % SARS-CoV-2 RNA (RENNY) (NEGATIVE) 11/23/20 11/23/20 11/23/20 Range/Units 14:00 16:23 17:35 WBC (3.0-10.3) x10-3/uL RBC (3.60-5.20) x10(6)uL Hgb (11.4-15.5) g/dL Hct (34.2-48.2) % MCV (76.7-100.5) fL MCH (23.9-33.9) pg MCHC (31.9-34.8) g/dL RDW (12.3-16.5) % Plt Count (151-488) x10(3)uL MPV (7.1-12.4) fL Neut % (Auto) (30.8-76.2) % Lymph % (Auto) (18.4-52.1) % [place] % (Auto) (4.4-15.7) % Eos % (Auto) (0.6-8.1) % Baso % (Auto) (0.2-1.5) % Neut # (Auto) (1.5-6.3) x10-3/uL Lymph # (Auto) (1.0-4.4) x10-3/uL [place] # (Auto) (0.3-1.0) x10-3/uL Eos # (Auto) (0.0-0.8) x10-3/uL Baso # (Auto) (0.0-0.1) x10-3/uL PT (9.0-11.1) sec INR (1.00-1.24) Sodium 131 L (135-145) mmol/L Potassium 5.0 D (3.5-5.3) mmol/L Chloride 93 L D (100-110) mmol/L Carbon Dioxide 6 L* (21-32) mmol/L BUN 27 H (7-18) mg/dL Creatinine 1.3 H (0.55-1.02) mg/dL Est Cr Clr Drug Dosing 36.36 mL/min Estimated GFR (MDRD) 43 L (>60) BUN/Creatinine Ratio 20.8 H (9-20) Glucose 697 H* (80-116) mg/dL POC Glucose (74-100) mg/dL Lactic Acid 2.6 H* (0.4-2.0) mmol/L Calcium 8.4 L (8.6-10.2) mg/dL Total Bilirubin (0.1-1.3) mg/dL AST (5-25) IU/L ALT (12-36) U/L Alkaline Phosphatase (56-112) IU/L C-Reactive Protein (0.5-0.9) mg/dL Total Protein (6.0-8.0) g/dL Albumin (3.5-5.2) g/dL Globulin g/dL Albumin/Globulin Ratio Urine Color (YELLOW) Urine Appearance (CLEAR) Urine pH (5.0-6.5) Ur Specific [place] (1.010-1.025) Urine Protein (NEGATIVE) mg/dL Urine Glucose (UA) (NORMAL) mg/dL Urine Ketones (NEGATIVE) mg/dL Urine Occult Blood (NEGATIVE) Urine Nitrite (NEGATIVE) Urine Bilirubin (NEGATIVE) Urine Urobilinogen (NEGATIVE) mg/dL Ur Leukocyte Esterase (NEGATIVE) Urine RBC (0-5) Urine WBC (0-5) Ur Squamous Epith Cells (NS,R,O) Urine Bacteria (NS) Ethyl Alcohol < 0.03 (<0.03) % SARS-CoV-2 RNA (RENNY) (NEGATIVE) 11/23/20 11/23/20 11/23/20 Range/Units 19:45 20:01 20:49 WBC (3.0-10.3) x10-3/uL RBC (3.60-5.20) x10(6)uL Hgb (11.4-15.5) g/dL Hct (34.2-48.2) % MCV (76.7-100.5) fL MCH (23.9-33.9) pg MCHC (31.9-34.8) g/dL RDW (12.3-16.5) % Plt Count (151-488) x10(3)uL MPV (7.1-12.4) fL Neut % (Auto) (30.8-76.2) % Lymph % (Auto) (18.4-52.1) % [place] % (Auto) (4.4-15.7) % Eos % (Auto) (0.6-8.1) % Baso % (Auto) (0.2-1.5) % Neut # (Auto) (1.5-6.3) x10-3/uL Lymph # (Auto) (1.0-4.4) x10-3/uL [place] # (Auto) (0.3-1.0) x10-3/uL Eos # (Auto) (0.0-0.8) x10-3/uL Baso # (Auto) (0.0-0.1) x10-3/uL PT (9.0-11.1) sec INR (1.00-1.24) Sodium 137 (135-145) mmol/L Potassium 4.6 (3.5-5.3) mmol/L Chloride 99 L D (100-110) mmol/L Carbon Dioxide 10 L* (21-32) mmol/L BUN 26 H (7-18) mg/dL Creatinine 1.3 H (0.55-1.02) mg/dL Est Cr Clr Drug Dosing 36.36 mL/min Estimated GFR (MDRD) 43 L (>60) BUN/Creatinine Ratio 20.0 (9-20) Glucose 131 H D (80-116) mg/dL POC Glucose 122 H (74-100) mg/dL Lactic Acid (0.4-2.0) mmol/L Calcium 7.9 L (8.6-10.2) mg/dL Total Bilirubin (0.1-1.3) mg/dL AST (5-25) IU/L ALT (12-36) U/L Alkaline Phosphatase (56-112) IU/L C-Reactive Protein (0.5-0.9) mg/dL Total Protein (6.0-8.0) g/dL Albumin (3.5-5.2) g/dL Globulin g/dL Albumin/Globulin Ratio Urine Color (YELLOW) Urine Appearance (CLEAR) Urine pH (5.0-6.5) Ur Specific [place] (1.010-1.025) Urine Protein (NEGATIVE) mg/dL Urine Glucose (UA) (NORMAL) mg/dL Urine Ketones (NEGATIVE) mg/dL Urine Occult Blood (NEGATIVE) Urine Nitrite (NEGATIVE) Urine Bilirubin (NEGATIVE) Urine Urobilinogen (NEGATIVE) mg/dL Ur Leukocyte Esterase (NEGATIVE) Urine RBC (0-5) Urine WBC (0-5) Ur Squamous Epith Cells (NS,R,O) Urine Bacteria (NS) Ethyl Alcohol (<0.03) % SARS-CoV-2 RNA (RENNY) Negative (NEGATIVE) 11/23/20 11/23/20 11/24/20 Range/Units 21:00 22:27 06:30 WBC 9.5 (3.0-10.3) x10-3/uL RBC 3.39 L (3.60-5.20) x10(6)uL Hgb 9.6 L (11.4-15.5) g/dL Hct 29.8 L (34.2-48.2) % MCV 88.1 (76.7-100.5) fL MCH 28.4 (23.9-33.9) pg MCHC 32.3 (31.9-34.8) g/dL RDW 15.4 (12.3-16.5) % Plt Count 199 (151-488) x10(3)uL MPV 9.8 (7.1-12.4) fL Neut % (Auto) 78.1 H (30.8-76.2) % Lymph % (Auto) 12.7 L (18.4-52.1) % [place] % (Auto) 7.9 (4.4-15.7) % Eos % (Auto) 0.4 L (0.6-8.1) % Baso % (Auto) 0.9 (0.2-1.5) % Neut # (Auto) 7.4 H (1.5-6.3) x10-3/uL Lymph # (Auto) 1.2 (1.0-4.4) x10-3/uL [place] # (Auto) 0.8 (0.3-1.0) x10-3/uL Eos # (Auto) 0.0 (0.0-0.8) x10-3/uL Baso # (Auto) 0.1 (0.0-0.1) x10-3/uL PT (9.0-11.1) sec INR (1.00-1.24) Sodium (135-145) mmol/L Potassium (3.5-5.3) mmol/L Chloride (100-110) mmol/L Carbon Dioxide (21-32) mmol/L BUN (7-18) mg/dL Creatinine (0.55-1.02) mg/dL Est Cr Clr Drug Dosing mL/min Estimated GFR (MDRD) (>60) BUN/Creatinine Ratio (9-20) Glucose (80-116) mg/dL POC Glucose 111 H 112 H (74-100) mg/dL Lactic Acid (0.4-2.0) mmol/L Calcium (8.6-10.2) mg/dL Total Bilirubin (0.1-1.3) mg/dL AST (5-25) IU/L ALT (12-36) U/L Alkaline Phosphatase (56-112) IU/L C-Reactive Protein (0.5-0.9) mg/dL Total Protein (6.0-8.0) g/dL Albumin (3.5-5.2) g/dL Globulin g/dL Albumin/Globulin Ratio Urine Color (YELLOW) Urine Appearance (CLEAR) Urine pH (5.0-6.5) Ur Specific [place] (1.010-1.025) Urine Protein (NEGATIVE) mg/dL Urine Glucose (UA) (NORMAL) mg/dL Urine Ketones (NEGATIVE) mg/dL Urine Occult Blood (NEGATIVE) Urine Nitrite (NEGATIVE) Urine Bilirubin (NEGATIVE) Urine Urobilinogen (NEGATIVE) mg/dL Ur Leukocyte Esterase (NEGATIVE) Urine RBC (0-5) Urine WBC (0-5) Ur Squamous Epith Cells (NS,R,O) Urine Bacteria (NS) Ethyl Alcohol (<0.03) % SARS-CoV-2 RNA (RENNY) (NEGATIVE) 11/24/20 11/24/20 Range/Units 06:30 06:30 WBC (3.0-10.3) x10-3/uL RBC (3.60-5.20) x10(6)uL Hgb (11.4-15.5) g/dL Hct (34.2-48.2) % MCV (76.7-100.5) fL MCH (23.9-33.9) pg MCHC (31.9-34.8) g/dL RDW (12.3-16.5) % Plt Count (151-488) x10(3)uL MPV (7.1-12.4) fL Neut % (Auto) (30.8-76.2) % Lymph % (Auto) (18.4-52.1) % [place] % (Auto) (4.4-15.7) % Eos % (Auto) (0.6-8.1) % Baso % (Auto) (0.2-1.5) % Neut # (Auto) (1.5-6.3) x10-3/uL Lymph # (Auto) (1.0-4.4) x10-3/uL [place] # (Auto) (0.3-1.0) x10-3/uL Eos # (Auto) (0.0-0.8) x10-3/uL Baso # (Auto) (0.0-0.1) x10-3/uL PT 9.9 (9.0-11.1) sec INR 0.91 L (1.00-1.24) Sodium 137 (135-145) mmol/L Potassium 4.2 (3.5-5.3) mmol/L Chloride 102 (100-110) mmol/L Carbon Dioxide 20 L (21-32) mmol/L BUN 19 H (7-18) mg/dL Creatinine 1.0 (0.55-1.02) mg/dL Est Cr Clr Drug Dosing 47.27 mL/min Estimated GFR (MDRD) 58 L (>60) BUN/Creatinine Ratio 19.0 (9-20) Glucose 57 L (80-116) mg/dL POC Glucose (74-100) mg/dL Lactic Acid (0.4-2.0) mmol/L Calcium 8.4 L (8.6-10.2) mg/dL Total Bilirubin (0.1-1.3) mg/dL AST (5-25) IU/L ALT (12-36) U/L Alkaline Phosphatase (56-112) IU/L C-Reactive Protein (0.5-0.9) mg/dL Total Protein (6.0-8.0) g/dL Albumin (3.5-5.2) g/dL Globulin g/dL Albumin/Globulin Ratio Urine Color (YELLOW) Urine Appearance (CLEAR) Urine pH (5.0-6.5) Ur Specific [place] (1.010-1.025) Urine Protein (NEGATIVE) mg/dL Urine Glucose (UA) (NORMAL) mg/dL Urine Ketones (NEGATIVE) mg/dL Urine Occult Blood (NEGATIVE) Urine Nitrite (NEGATIVE) Urine Bilirubin (NEGATIVE) Urine Urobilinogen (NEGATIVE) mg/dL Ur Leukocyte Esterase (NEGATIVE) Urine RBC (0-5) Urine WBC (0-5) Ur Squamous Epith Cells (NS,R,O) Urine Bacteria (NS) Ethyl Alcohol (<0.03) % SARS-CoV-2 RNA (RENNY) (NEGATIVE) Result Diagrams: 11/24/20 06:30 11/24/20 06:30 Sepsis Event Note - Evaluation Sepsis Screening Result: No Definite Risk - Focused Exam Vital Signs: Vital Signs Temp Pulse Resp BP Pulse Ox 11/24/20 07:56 98.4 F 107 H 18 136/65 92 L 11/24/20 05:00 97.8 F 110 H 18 110/61 99 11/23/20 22:45 98 F 114 H 18 109/60 100 11/23/20 22:30 98.0 F 117 H 18 114/57 L 98 - Problem List (1) Type 1 diabetes mellitus SNOMED Code(s): 91027469 ICD Code: E10.9 - TYPE 1 DIABETES MELLITUS WITHOUT COMPLICATIONS Status: Acute Current Visit: Yes Qualifiers: Diabetes mellitus complication status: with other specified complication Qualified Code(s): E10.69 - Type 1 diabetes mellitus with other specified complication (2) Anxiety and depression SNOMED Code(s): 358901880 ICD Code: F41.9 - ANXIETY DISORDER, UNSPECIFIED; F32.9 - MAJOR DEPRESSIVE DISORDER, SINGLE EPISODE, UNSPECIFIED Status: Chronic Current Visit: Yes (3) HLD (hyperlipidemia) SNOMED Code(s): 70447905 ICD Code: E78.5 - HYPERLIPIDEMIA, UNSPECIFIED Status: Chronic Current Visit: Yes Qualifiers: Hyperlipidemia type: unspecified Qualified Code(s): E78.5 - Hyperlipidemia, unspecified (4) Tobacco abuse SNOMED Code(s): 616842825 ICD Code: Z72.0 - TOBACCO USE Status: Chronic Current Visit: Yes (5) MELY (acute kidney injury) SNOMED Code(s): 41479741, 89835575 ICD Code: N17.9 - ACUTE KIDNEY FAILURE, UNSPECIFIED Status: Chronic Current Visit: Yes (6) Dehydration SNOMED Code(s): 93733179 ICD Code: E86.0 - DEHYDRATION Status: Acute Current Visit: Yes (7) DKA (diabetic ketoacidoses) SNOMED Code(s): 269858582, 122046896 ICD Code: E13.10 - OTH DIABETES MELLITUS WITH KETOACIDOSIS WITHOUT COMA Status: Acute Current Visit: Yes Qualifiers: Diabetes mellitus type: type 1 Diabetes mellitus complication detail: without coma Qualified Code(s): E10.10 - Type 1 diabetes mellitus with ketoacidosis without coma (8) Tension headache SNOMED Code(s): 407791819 ICD Code: G44.209 - TENSION-TYPE HEADACHE, UNSPECIFIED, NOT INTRACTABLE Status: Acute Current Visit: Yes (9) GERD (gastroesophageal reflux disease) SNOMED Code(s): 025625231 ICD Code: K21.9 - GASTRO-ESOPHAGEAL REFLUX DISEASE WITHOUT ESOPHAGITIS Status: Acute Current Visit: Yes Qualifiers: Esophagitis presence: without esophagitis Qualified Code(s): K21.9 - Gastro-esophageal reflux disease without esophagitis Problem List Initiated/Reviewed/Updated: Yes Orders Last 24hrs: Active Orders 24 hr Category Date Time Status Patient Status [ADT] Routine ADT 11/23/20 21:36 Active Accu Check [Blood Glucose Check, Bedside] [RC] Care 11/23/20 21:40 Active QIDACANDBED Ambulate [RC] PER UNIT ROUTINE Care 11/23/20 21:35 Active Antiembolic Devices [RC] .Routine Care 11/23/20 21:37 Active Intake and Output [RC] 06,14,22 Care 11/23/20 21:38 Active Neurological Monitoring [RC] ASDIRECTED Care 11/23/20 21:41 Active Pulse Oximetry [RC] .PRN Care 11/23/20 21:36 Active Up With Assistance [RC] ASDIRECTED Care 11/23/20 21:35 Active VTE/DVT Education [RC] Click to Edit Care 11/23/20 21:37 Active Vital Signs [RC] Q4H Care 11/23/20 21:36 Active Consistent Carbohydrate Diet [DIET] Diet 11/24/20 Lunch Active Food Request [Guest Tray] [DIET] Diet 11/24/20 Breakfast Ordered Heart Healthy Diet [DIET] Diet 11/24/20 Breakfast Active Acetaminophen [TylenoL] Med 11/24/20 07:45 Active 650 mg PO Q4H PRN Calcium Carbonate [Tums] Med 11/23/20 21:35 Active 1,000 mg PO Q4H PRN Dextrose 50% in Water Med 11/23/20 16:14 Active 50 ml IVPUSH ASDIRECTED PRN Dextrose 50% in Water Med 11/23/20 16:48 Active 50 ml IVPUSH ASDIRECTED PRN Dextrose 50% in Water Med 11/23/20 20:10 Active 50 ml IVPUSH ASDIRECTED PRN Glucagon,Human Recombinant [GlucaGen] Med 11/23/20 16:14 Active 1 mg IM ASDIRECTED PRN Glucagon,Human Recombinant [GlucaGen] Med 11/23/20 16:48 Active 1 mg IM ASDIRECTED PRN Glucagon,Human Recombinant [GlucaGen] Med 11/23/20 20:10 Active 1 mg IM ASDIRECTED PRN Magnesium Hydroxide [Milk of Magnesia] Med 11/23/20 21:35 Active 30 ml PO BID PRN Sodium Chloride 0.9% [Normal Saline] 1,000 ml Med 11/23/20 18:45 Active IV .BOLUS Sodium Chloride 0.9% [Normal Saline] 1,000 ml Med 11/23/20 14:00 Active IV ASDIRECTED Sodium Chloride 0.9% [Normal Saline] 1,000 ml Med 11/23/20 16:15 Active IV ASDIRECTED Sodium Chloride 0.9% [Normal Saline] 1,000 ml Med 11/23/20 20:15 Active IV ASDIRECTED Sodium Chloride 0.9% [Normal Saline] 1,000 ml Med 11/23/20 21:45 Active IV ASDIRECTED DVT/VTE Prophylaxis Reflex [OM.PC] Per Unit Routine Oth 11/23/20 21:36 Ordered Resuscitation Status Routine Resus Stat 11/23/20 21:35 Ordered Medication Orders Acetaminophen (Tylenol) 650 mg PO Q4H PRN PRN Reason: Pain Last Admin: 11/24/20 07:55 Dose: 650 mg Documented by: [id number] Calcium Carbonate/Glycine (Tums) 1,000 mg PO Q4H PRN PRN Reason: Dyspepsia Dextrose/Water (Dextrose 50% In Water) 50 ml IVPUSH ASDIRECTED PRN PRN Reason: Hypoglycemia Dextrose/Water (Dextrose 50% In Water) 50 ml IVPUSH ASDIRECTED PRN PRN Reason: Hypoglycemia Dextrose/Water (Dextrose 50% In Water) 50 ml IVPUSH ASDIRECTED PRN PRN Reason: Hypoglycemia Glucagon (Glucagen) 1 mg IM ASDIRECTED PRN PRN Reason: Hypoglycemia Glucagon (Glucagen) 1 mg IM ASDIRECTED PRN PRN Reason: Hypoglycemia Glucagon (Glucagen) 1 mg IM ASDIRECTED PRN PRN Reason: Hypoglycemia Sodium Chloride (Normal Saline) 1,000 mls @ 999 mls/hr IV ASDIRECTED [facility] Last Admin: 11/23/20 15:10 Dose: 999 mls/hr Documented by: Infusion: 11/23/20 15:01 Dose: 999 mls/hr Documented by: Admin: 11/23/20 14:00 Dose: 999 mls/hr Documented by: DIFFCAL Sodium Chloride (Normal Saline) 1,000 mls @ 250 mls/hr IV ASDIRECTED [facility] Last Admin: 11/23/20 16:10 Dose: 250 mls/hr Documented by: DIFFCAL Sodium Chloride (Normal Saline) 1,000 mls @ 999 mls/hr IV .BOLUS CK Sodium Chloride (Normal Saline) 1,000 mls @ 125 mls/hr IV ASDIRECTED [facility] Last Admin: 11/23/20 20:17 Dose: 125 mls/hr Documented by: LUIS Sodium Chloride (Normal Saline) 1,000 mls @ 125 mls/hr IV ASDIRECTED [facility] Last Admin: 11/24/20 04:27 Dose: 125 mls/hr Documented by: GOLD Magnesium Hydroxide (Milk Of Magnesia) 30 ml PO BID PRN PRN Reason: Constipation Assessment/Plan Comment:: Her sugar was 52 this morning. I will DC fluids,encourage oral intake. Try Toradol for NOVAK. DC home later this afternoon if able to keep food down.
[2020-11-24] MEDS ORDERED: Ketorolac 30 MG/ML SDV IVPUSH PRN (08:42)
[2020-11-24] MEDS ORDERED: Sertraline 100 MG Tab PO SCH (09:00)
== END 2020-11-24 12:35 | disposition home or self-care (01) ==
LOC: FB.ED 13:22 → UNDOADMOB 22:36 → FB.MS 22:36
PROVIDERS: ADMIT Family Medicine; ATTEND Family Medicine
DX: E10.10 Type 1 diabetes mellitus with ketoacidosis without coma (principal); F41.9 Anxiety disorder, unspecified; Z20.828 Contact with and (suspected) exposure to other viral communicable diseases; F32.9 Major depressive disorder, single episode, unspecified; E78.5 Hyperlipidemia, unspecified; N17.9 Acute kidney failure, unspecified; E86.0 Dehydration; G44.209 Tension-type headache, unspecified, not intractable; K21.9 Gastro-esophageal reflux disease without esophagitis; F17.210 Nicotine dependence, cigarettes, uncomplicated; Z79.899 Other long term (current) drug therapy; Z77.120 Contact with and (suspected) exposure to mold (toxic); F10.129 Alcohol abuse with intoxication, unspecified; Y90.0 Blood alcohol level of less than 20 mg/100 ml
CPT/HCPCS: 36415; 80048; 80053; 80307; 81001; 82962; 83605; 85025; 85610; 86140; 96374; 96375; 99284; 99284-25; A9270-GY; C9113; G0378; J0696; J1815-GY; J1885; J2405; J7030; U0002

== ENCOUNTER 2023-07-31 06:02 | Emergency (ER) | payer MEDICAID ==
[2023-07-31 06:36] VITALS: BP 110/72; PULSE 76
== END 2023-07-31 07:16 | disposition home or self-care (01) ==
LOC: FB.ED 06:02
DX: E10.65 Type 1 diabetes mellitus with hyperglycemia (principal); J44.9 Chronic obstructive pulmonary disease, unspecified; Z91.048 Other nonmedicinal substance allergy status
CPT/HCPCS: 82947; 99285

== ENCOUNTER 2024-07-06 07:59 | Emergency (ER) | payer MEDICAID ==
[2024-07-06 08:17] VITALS: BP 142/83; PULSE 87
[2024-07-06] MEDS: Ketorolac 30 MG/ML SDV IM ONE (08:43)
== END 2024-07-06 09:53 | disposition home or self-care (01) ==
LOC: FB.ED 07:59
DX: S42.031A Displaced fracture of lateral end of right clavicle, initial encounter for closed fracture (principal); E78.00 Pure hypercholesterolemia, unspecified; J44.9 Chronic obstructive pulmonary disease, unspecified; E10.9 Type 1 diabetes mellitus without complications; F17.210 Nicotine dependence, cigarettes, uncomplicated; Z91.018 Allergy to other foods; Z79.4 Long term (current) use of insulin; Z79.899 Other long term (current) drug therapy; X58.XXXA Exposure to other specified factors, initial encounter
CPT/HCPCS: 73000; 96372; 99283; J1885